=== PATIENT | male | born 1975 | race Two or more races ===

== ENCOUNTER 2018-12-01 13:52 | Emergency (ER) | payer SELFPAY ==
[~2018-12-01] VITALS: Ht 170.2 cm; Wt 70.3 kg
[2018-12-01 14:03] VITALS: BP 145/105
== END 2018-12-01 15:08 | disposition home or self-care (01) ==
LOC: ER 13:52
DX: S09.8XXA Other specified injuries of head, initial encounter (principal); G89.29 Other chronic pain; F17.200 Nicotine dependence, unspecified, uncomplicated; Z88.1 Allergy status to other antibiotic agents; W22.8XXA Striking against or struck by other objects, initial encounter; Y93.89 Activity, other specified; Y92.89 Other specified places as the place of occurrence of the external cause; Y99.8 Other external cause status

== ENCOUNTER 2019-07-16 19:39 | Emergency (ER) | payer SELFPAY ==
[~2019-07-16] VITALS: Ht 177.8 cm; Wt 68.9 kg
--- NOTE | 2019-07-16 19:55 | NUR ---
CALLED PT TO BE TRAIGED, NOT IN WAITING ROOM
--- NOTE | 2019-07-16 20:42 | NUR ---
BIBS FORM HOME TO ER BED 2. AAOX4. NOT IN RESP DISTRESS, BREATHING EVEN AND UNLABORED. 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 PER PT, THE EPISODE STARTED 3 HRA AGO LASTED FOR 2 HOURS AND NOW BACK TO BASELINE DURING ASSESSMENT. DENIES DIAPHORESIS DURING EPISODE. LUNG SOUNDS ARE CLEAR AND BREATH SOUNDS HEARD UPON ASSESSMENT. DENIES CP. PLACED ON MONITOR. MD AT BEDSIDE FOR EVAL. PT IS A CURRENT EVERYDAY SMOKER. SMOKING CESSATION TEACHING TO PT, VERBALIZED UNDERSTANDING.
--- NOTE | 2019-07-16 20:57 | NUR ---
XRAY AT BEDSIDE
[2019-07-16 21:41] VITALS: BP 167/100
--- NOTE | 2019-07-16 21:41 | NUR ---
Patient discharged to home in stable condition. Written and verbal after care instructions given. Patient verbalizes understanding of instruction. Pt ambulatory with a steady gait
== END 2019-07-16 21:42 | disposition home or self-care (01) ==
LOC: ER 19:40
DX: R06.02 Shortness of breath (principal); G89.29 Other chronic pain; F17.200 Nicotine dependence, unspecified, uncomplicated; Z88.1 Allergy status to other antibiotic agents
CPT/HCPCS: 71045-TC